=== PATIENT | male | born 1980 | race African-American/Black ===

== ENCOUNTER 2019-04-29 19:42 | Emergency (ER) | payer OTHER ==
[~2019-04-29] VITALS: Ht 182.9 cm; Wt 79.8 kg
[2019-04-29] MEDS ORDERED: IV RINGERS SOLUTION,LACTATED 1,000 ML IV SCH (19:47)
--- NOTE | 2019-04-29 19:47 | ED.ADGEN ---
Past History Past Medical History: Other Past Surgical History: Cervical Fusion Adult General Chief Complaint Chief Complaint ".. I don't know.." HPI HPI Patient is a 38 year old male [facility] inmate who presents with hx found down in cell and non-responsive. Pt. amparo historian. Pt. was down for unknown length of time. Pt. given 2 amp.s narcan prior to arrival by nurse at nursing home. Pt. reportedly had some increase in his level of consciousness. Pt is verbal on arrival. Poor historian. Pt. reports neck tenderness on exam and it was what appeared to be anterior healed scars on neck. Trachea is midline. Hard collar was placed on patient with assistance of nursing and paramedics. As pt. mentation continued to improve. It was determined pt. had Hx. of recent cervical spinal surgery at in past 60 days with hardware placement,( pt. is unsure). Pt. reports initial neck injury was from a fall in nursing home in Jul. Pt. denies drug use today. States may have fallen again and hurt is neck again.. Pt. unwilling or Unable to move any ext. on initial exam. Per nursing home transfer sheet showed pt. has hx of Abdomen pain, IBS, Adjustment Disorder, Chronic nerve pain. Pt. reportedly high security and flight risk. Call placed to for discharge record from neck surgery and possible x-rays. Review of Systems Review of Systems Pt. amparo historian Constitutional: Denies fever or chills [] Eyes: Denies change in visual acuity, redness, or eye pain [] HENT: Denies nasal congestion or sore throat [] Respiratory: Denies cough or shortness of breath [] Cardiovascular: No additional information not addressed in HPI [] GI: Denies abdominal pain, nausea, vomiting, bloody stools or diarrhea [] : Denies dysuria or hematuria [] Musculoskeletal: Denies back pain or joint pain [] Integument: Denies rash or skin lesions [] Has complaints of neck pain. Reports he can't move. Neurologic: Denies headache, Pt. reports generalized weakness and generalized sensory loss. Endocrine: Denies polyuria or polydipsia [] All other systems were reviewed and found to be within normal limits, except as documented in this note. Family History Family History Not currently available Current Medications Current Medications Current Medications Medications (Trade) Dose Ordered Sig/Blake Start Time Stop Time Status Last Admin Dose Admin Ceftriaxone Sodium (Rocephin Im) 1 gm 1X ONCE 04/29/19 23:30 04/29/19 23:32 DC 04/29/19 23:58 1 GM Lactated Ringer's 1,000 ml @ 1,000 mls/hr Q1H 04/29/19 19:47 04/29/19 20:50 DC 04/29/19 19:47 1,000 MLS/HR Allergies Allergies Allergies Coded Allergies Type Severity Reaction Last Updated Verified No Known Drug Allergies 04/29/19 No Physical Exam Physical Exam Constitutional: Well developed, well nourished, no acute distress, mentation seems slow, in appearance. [] HENT: Normocephalic, atraumatic, bilateral external ears normal, oropharynx moist, no oral exudates, nose normal. [] Eyes: PERRLA, EOMI, conjunctiva normal, no discharge. [] Neck: posterior cervical tenderness, , no stridor. Well heal anterior neck scars. Cardiovascular:Heart rate regular rhythm, no murmur [] Lungs & Thorax: Bilateral breath sounds equal at apexes on auscultation [] Abdomen: Bowel sounds normal, soft, no tenderness, no masses, no pulsatile masses. [] Rectal no gross blood. Pt. reports he can not feel rectal exam. Skin: Warm, dry, no erythema, no rash. [] Back: No tenderness, no CVA tenderness. [] Extremities: No tenderness, no cyanosis, no clubbing, pt. states he can not move any of his extremities. , no edema. [] Neurologic: Responds slowly to questions,, reports he has loss all motor function,,and all sensory function, ( It was noted he did move Rt. arm ) Gross NIH 17. Psychologic: Affect flat, slow to respond, judgement unable to determine, was able to answer questions . Current Patient Data Vital Signs Vital Signs Date Time Temp Pulse Resp B/P (MAP) Pulse Ox O2 Delivery O2 Flow Rate FiO2 04/29/19 23:00 62 12 117/72 (87) 97 Room Air 04/29/19 19:45 97.9 Lab Results Laboratory Tests Test 04/29/19 20:02 04/29/19 20:30 04/29/19 23:10 White Blood Count 2.7 x10^3/uL (4.0-11.0) L Red Blood Count 4.67 x10^6/uL (4.30-5.70) Hemoglobin 14.5 g/dL (13.0-17.5) Hematocrit 43.4 % (39.0-53.0) Mean Corpuscular Volume 93 fL (79-100) Mean Corpuscular Hemoglobin 31 pg (25-35) Mean Corpuscular Hemoglobin Concent 34 g/dL (31-37) Red Cell Distribution Width 13.5 % (11.5-14.5) Platelet Count 230 x10^3/uL (140-400) Neutrophils (%) (Auto) 42 % (31-73) Lymphocytes (%) (Auto) 44 % (24-48) Monocytes (%) (Auto) 13 % (0-9) H Eosinophils (%) (Auto) 1 % (0-3) Basophils (%) (Auto) 1 % (0-3) Neutrophils # (Auto) 1.1 x10^3uL (1.8-7.7) L Lymphocytes # (Auto) 1.2 x10^3/uL (1.0-4.8) Monocytes # (Auto) 0.4 x10^3/uL (0.0-1.1) Eosinophils # (Auto) 0.0 x10^3/uL (0.0-0.7) Basophils # (Auto) 0.0 x10^3/uL (0.0-0.2) Prothrombin Time 10.9 SEC (9.4-11.4) Prothrombin Time INR 1.0 (0.9-1.1) Activated Partial Thromboplast Time 27 SEC (23-33) D-Dimer (Tiki) 0.32 mg/L (0.00-0.50) Sodium Level 142 mmol/L (136-145) Potassium Level 4.5 mmol/L (3.5-5.1) Chloride Level 103 mmol/L (98-107) Carbon Dioxide Level 30 mmol/L (21-32) Anion Gap 9 (6-14) Blood Urea Nitrogen 14 mg/dL (8-26) Creatinine 1.2 mg/dL (0.7-1.3) Estimated GFR (Cockcroft-Gault) 82.9 Glucose Level 75 mg/dL (70-99) Calcium Level 9.1 mg/dL (8.5-10.1) Magnesium Level 2.4 mg/dL (1.8-2.4) Total Bilirubin 1.0 mg/dL (0.2-1.0) Direct Bilirubin 0.2 mg/dL (0.0-0.2) Aspartate Amino Transferase (AST) 19 U/L (15-37) Alanine Aminotransferase (ALT) 18 U/L (16-63) Alkaline Phosphatase 87 U/L (46-116) Creatine Kinase 334 U/L (39-308) H Troponin I Quantitative < 0.017 ng/mL (0-0.055) JN-Hch-Q-Type Natriuretic Peptide 13 pg/mL (0-124) Total Protein 7.9 g/dL (6.4-8.2) Albumin 4.3 g/dL (3.4-5.0) Lipase 111 U/L (73-393) Ethyl Alcohol Level < 10 mg/dL (0-10) Urine Collection Type Unknown Urine Color Yellow Urine Clarity Clear Urine pH 6.5 Urine Specific [place] 1.010 Urine Protein Neg (NEG-TRACE) Urine Glucose (UA) Neg mg/dL (NEG) Urine Ketones (Stick) Neg mg/dL (NEG) Urine Blood Neg (NEG) Urine Nitrite Neg (NEG) Urine Bilirubin Neg (NEG) Urine Urobilinogen Dipstick 0.2 mg/dL (0.2 mg/dL) Urine Leukocyte Esterase Neg (NEG) Urine RBC 0 /HPF (0-2) Urine WBC 0 /HPF (0-4) Urine Bacteria 0 /HPF (0-FEW) Urine Opiates Screen Neg (NEG) Urine Methadone Screen Neg (NEG) Urine Barbiturates Neg (NEG) Urine Phencyclidine Screen Neg (NEG) Urine Amphetamine/Methamphetamine Neg (NEG) Urine Benzodiazepines Screen Neg (NEG) Urine Cocaine Screen Neg (NEG) Urine Cannabinoids Screen Neg (NEG) Urine Ethyl Alcohol Neg (NEG) Blood pH 7.34 (7.35-7.46) L Blood Gas PCO2 47 mmHg (35-46) H Blood Gas PO2 96 mmHg (80-100) Blood Gas HCO3 26 mmol/L (21-28) Arterial Bld O2 Saturation (Calc) 97 % (92-99) FiO2 21 % EKG EKG My interpretation of EKG shows a sinus rhythm at 73 bpm. No findings acute STEMI of contralateral changes.[] Radiology/Procedures Radiology/Procedures My interpretation of initial CXR show s no acute cardiopulmonary changes. PA and Lateral neck shows Cervical Fusion and spacer in C4-5. [[address] [address] IMAGING REPORT Signed PATIENT: ARNALDO YI: [id number] : 1980 LOCATION: ER AGE: 38 SEX: M EXAM STATUS: REG ER ORD. PHYSICIAN: DONAL QUINONES MD REASON: found down, non response at [facility] nursing home cell PROCEDURE: CT HEAD AND CERVICAL SPINE WO Exam: CT head and cervical spine without contrast INDICATION: Found down TECHNIQUE: Sequential axial images through the head and cervical spine were obtained without the administration of IV contrast. Comparisons: None FINDINGS: Head: No focal parenchymal lesion or hemorrhage is identified. There is no midline shift or sulcal effacement. No acute vascular territory infarction is identified. Chery-white distinction is preserved. The ventricular system is within normal limits without compression hydrocephalus. The basal cisterns are well maintained. There is mucosal thickening of the left maxillary sinus. The visualized portions of the paranasal sinuses and mastoid air cells are well-pneumatized. No acute fractures. Cervical spine: There is straightening of the cervical spine which may be positional. Vertebral body heights are well-maintained. Anterior cervical fusion of C4 and C5 with disc spacer. Fracture to the cervical spine is not identified. Visualized paraspinal soft tissues are unremarkable. IMPRESSION: 1. No acute intracranial abnormality. Sinus disease as described above. 2. Negative CT C-spine for acute rheumatic injury. Exposure: One or more of the following in the visualized dose reduction techniques were utilized for this examination: 1. Automated exposure control 2. Adjustment of the MA and/or KV according to patient size Use of iterative of reconstructive technique Electronically signed by: Arminda Raya MD (04/29/2019 9:13 PM) [facility] [place] DICTATED AND SIGNED BY: ARMINDA RAYA MD DATE: 04/29/192112 CC: DONAL QUINONES MD; PCP,NO ~ [address] [address] IMAGING REPORT Signed PATIENT: ARNALDO YI: [id number] : 1980 LOCATION: ER AGE: 38 SEX: M EXAM STATUS: REG ER ORD. PHYSICIAN: DONAL QUINONES MD REASON: found down in [facility] nursing home cell PROCEDURE: PORTABLE CHEST 1V Exam: Chest one view INDICATION: Found down TECHNIQUE: Frontal view of the chest Comparisons: None FINDINGS: The cardiomediastinal silhouette and pulmonary vessels are within normal limits. The lung and pleural spaces are clear. IMPRESSION: No acute cardiopulmonary process. Electronically signed by: Arminda Raya MD (04/29/2019 9:17 PM) [facility] DICTATED AND SIGNED BY: ARMINDA RAYA MD DATE: 04/29/192116 CC: DONAL QUINONES MD; PCP,NO ~ ][place] [address] IMAGING REPORT Signed PATIENT: RADHA HOWARD ACCOUNT: [id number] : 1980 LOCATION: ER AGE: 38 SEX: M EXAM STATUS: REG ER ORD. PHYSICIAN: DONAL QUINONES MD REASON: hx coagulopathy, DVT, Head bleed, Seizure PROCEDURE: CT HEAD WO CONTRAST Exam: CT head and cervical spine without contrast INDICATION: Seizure TECHNIQUE: Sequential axial images through the head and cervical spine were obtained without the administration of IV contrast. Comparisons: None FINDINGS: Head: No focal parenchymal lesion or hemorrhage is identified. There is no midline shift or sulcal effacement. 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 No acute vascular territory infarction is identified. Chery-white distinction is preserved. The ventricular system is within normal limits without compression hydrocephalus. The basal cisterns are well maintained. The visualized portions of the paranasal sinuses and mastoid air cells are well-pneumatized. No acute fractures. Cervical spine: There is reversal of the normal cervical lordosis. Vertebral body heights are well-maintained. Fracture to the cervical spine is not identified. Mild degenerative disc disease noted throughout cervical spine greatest at C5-C6. There is mild bilateral facet arthropathy noted in the cervical spine. Visualized paraspinal soft tissues are unremarkable. IMPRESSION: 1. No acute intracranial abnormality. 2. Negative CT C-spine for acute traumatic injury. Exposure: One or more of the following in the visualized dose reduction techniques were utilized for this examination: 1. Automated exposure control 2. Adjustment of the MA and/or KV according to patient size Use of iterative of reconstructive technique Electronically signed by: Arminda Raya MD (04/29/2019 8:38 PM) [facility] [place] DICTATED AND SIGNED BY: ARMINDA RAYA MD DATE: 04/29/192037 CC: DONAL QUINONES MD; PCP,NO ~ Course & Med Decision Making Course & Med Decision Making Pertinent Labs and Imaging studies reviewed. (See chart for details) Calls place to for last discharge and film reports from last neck surgery. Vitals and presentation appears, exam not consistent with cervical injury severe enough to cause total loss of lower body motor or sensory function. Will however continue spinal precautions and cervical collar. Would expect respiratory difficulty and tachycardia or hypotension. Pt. mental status has improved. Will now answer questions. 2300 Pt. To Transfer to - Trauma Dr. Vanegas Accepting 2330 [] Final Impression Final Impression 1. Mental Status Change (Reported improved with 2 amps of Narcan) 2. Lt. Maxillary Sinusitis 3. Cervical Pain- Hx. of C 4/ C5 Ant. Fusion with spacer 4. Hx IBS 5. Hx. Cervical Neuropathy 6. Hx Adjustment disorder 7. Elevated CK 334 8. Leukopeni 2.7 Dragon Disclaimer Dragon Disclaimer This electronic medical record was generated, in whole or in part, using a voice recognition dictation system. Dragon Disclaimer This chart was dictated in whole or in part using Voice Recognition software in a busy, high-work load, and often noisy Emergency Department environment. It may contain unintended and wholly unrecognized errors or omissions. Dragon Disclaimer This chart was dictated in whole or in part using Voice Recognition software in a busy, high-work load, and often noisy Emergency Department environment. It may contain unintended and wholly unrecognized errors or omissions. DONLA QUINONES MD Apr 29, 2019 19:47
[2019-04-29 20:20] LABS: BASO % 1 % (0-3); EOS % 1 % (0-3); HEMATOCRIT 43.4 % (39.0-53.0); HEMOGLOBIN 14.5 g/dL (13.0-17.5); LYMPH # 1.2 x10^3/uL (1.0-4.8); LYMPH % 44 % (24-48); MEAN CORPUSCULAR HEMOGLOBIN 31 pg (25-35); MEAN CORPUSCULAR HGB CONC 34 g/dL (31-37); MEAN CORPUSCULAR VOLUME 93 fL (79-100); MONO # 0.4 x10^3/uL (0.0-1.1); MONO % 13 % (0-9); NEUT # 1.1 x10^3uL (1.8-7.7); NEUT % 42 % (31-73); PLATELET COUNT 230 x10^3/uL (140-400); RED BLOOD COUNT 4.67 x10^6/uL (4.30-5.70); RED CELL DISTRIBUTION WIDTH 13.5 % (11.5-14.5); WHITE BLOOD COUNT 2.7 x10^3/uL (4.0-11.0)
[2019-04-29 20:47] LABS: ALBUMIN 4.3 g/dL (3.4-5.0); CALCIUM 9.1 mg/dL (8.5-10.1); CREATININE 1.2 mg/dL (0.7-1.3); DIRECT BILIRUBIN 0.2 mg/dL (0.0-0.2); GFR 82.9; MAGNESIUM 2.4 mg/dL (1.8-2.4); POTASSIUM 4.5 mmol/L (3.5-5.1); TOTAL PROTEIN 7.9 g/dL (6.4-8.2)
[2019-04-29 21:06] LABS: BARBITURATES NEG (NEG); BENZODIAZEPINES NEG (NEG); CANNABINOIDS NEG (NEG); COCAINE NEG (NEG); METHADONE NEG (NEG); OPIATES NEG (NEG); PHENCYCLIDINE NEG (NEG)
[2019-04-29 21:09] LABS: AMPHETAMINE/METHAMPHETAMINE NEG (NEG)
[2019-04-29 21:15] LABS: BACTERIA,URINE 0 /HPF (0-FEW); BILIRUBIN,URINE NEG (NEG); CLARITY,URINE CLEAR; COLOR,URINE YELLOW; GLUCOSE,URINE NEG (NEG); NITRITE,URINE NEG (NEG); RBC,URINE 0 /HPF (0-2); UROBILINOGEN,URINE 0.2 mg/dL (0.2 mg/dL); WBC,URINE 0 /HPF (0-4)
--- NOTE | 2019-04-29 21:16 | RAD ---
Exam: CT head and cervical spine without contrast INDICATION: Found down TECHNIQUE: Sequential axial images through the head and cervical spine were obtained without the administration of IV contrast. Comparisons: None FINDINGS: Head: No focal parenchymal lesion or hemorrhage is identified. There is no midline shift or sulcal effacement. No acute vascular territory infarction is identified. Chery-white distinction is preserved. The ventricular system is within normal limits without compression hydrocephalus. The basal cisterns are well maintained. There is mucosal thickening of the left maxillary sinus. The visualized portions of the paranasal sinuses and mastoid air cells are well-pneumatized. No acute fractures. Cervical spine: There is straightening of the cervical spine which may be positional. Vertebral body heights are well-maintained. Anterior cervical fusion of C4 and C5 with disc spacer. Fracture to the cervical spine is not identified. Visualized paraspinal soft tissues are unremarkable. IMPRESSION: 1. No acute intracranial abnormality. Sinus disease as described above. 2. Negative CT C-spine for acute rheumatic injury. Exposure: One or more of the following in the visualized dose reduction techniques were utilized for this examination: 1. Automated exposure control 2. Adjustment of the MA and/or KV according to patient size Use of iterative of reconstructive technique Electronically signed by: Arminda Mata MD (04/29/2019 9:13 PM) [facility] [place]
--- NOTE | 2019-04-29 21:20 | RAD ---
Exam: Chest one view INDICATION: Found down TECHNIQUE: Frontal view of the chest Comparisons: None FINDINGS: The cardiomediastinal silhouette and pulmonary vessels are within normal limits. The lung and pleural spaces are clear. IMPRESSION: No acute cardiopulmonary process. Electronically signed by: Arminda Mata MD (04/29/2019 9:17 PM) [facility]
--- NOTE | 2019-04-29 21:22 | RAD ---
Exam: Cervical spine 2 views INDICATION: Hardware placement TECHNIQUE: Frontal and lateral views the cervical spine. Comparisons: None FINDINGS: Anterior cervical fusion hardware noted at C4-C5 with bilateral interbody screws and interconnecting stabilization plate. There is straightening of the cervical spine. Multilevel spondylotic change in the cervical spine with degenerative disc disease greatest at the surgical level. There is mild prevertebral soft tissue swelling. IMPRESSION: Anterior cervical fusion at C4-C5 with mild prevertebral soft tissue swelling, which is nonspecific. Findings can be seen in the more immediate postoperative setting. Electronically signed by: Arminda Mata MD (04/29/2019 9:18 PM) [facility]
[2019-04-29 23:00] VITALS: BP 117/72
[2019-04-29 23:27] LABS: BGAS PH 7.34 (7.35-7.46)
[2019-04-29] MEDS ORDERED: cefTRIAXone IM 1 GM VIAL IM ONE (23:30)
== END 2019-04-30 00:30 | disposition short-term general hospital (02) ==
LOC: ER 19:42
DX: R41.82 Altered mental status, unspecified (principal); J32.0 Chronic maxillary sinusitis; M54.2 Cervicalgia; K58.9 Irritable bowel syndrome, unspecified; F43.20 Adjustment disorder, unspecified; G89.29 Other chronic pain; D72.819 Decreased white blood cell count, unspecified; R74.8 Abnormal levels of other serum enzymes
CPT/HCPCS: 36415; 36600; 51702; 70450; 71045; 72040; 72125; 80048; 80076; 80307; 81001; 82550; 82803; 83690; 83735; 83880; 84443; 84484; 85025; 85379; 85610; 85730; 96360; 96361; 96372; 99285; G0480; J0696; J7120